=== PATIENT | male | born 1995 | race Caucasian/White ===

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

== ENCOUNTER 2017-06-03 16:35 | Emergency (ER) | payer MEDICAID ==
[~2017-06-03] VITALS: Ht 175.3 cm; Wt 68.2 kg
[~2017-06-03 16:35] MED LIST changes: +CEPH-460 PO; +NAPR500 PO
[2017-06-03 16:36] VITALS: BP 122/85; PULSE 97; RESP 16; TEMP 98.9; O2SAT 98
[2017-06-03 18:45] LABS: AUTOMATED NEUTROPHIL # 14.2 TH/MM3 (1.8-7.7); BASOPHIL % 0.1 % (0.0-2.0); EOSINOPHIL % 0.1 % (0.0-4.0); HEMATOCRIT 40.4 % (39.0-51.0); HEMOGLOBIN 14.2 GM/DL (13.0-17.0); LYMPH % 9.3 % (9.0-44.0); LYMPHOCYTE # 1.6 TH/MM3 (1.0-4.8); MEAN CELL VOLUME 86.6 FL (80.0-100.0); MEAN CORPUSCULAR HEMOGLOBIN 30.6 PG (27.0-34.0); MEAN CORPUSCULAR HGB CONC 35.3 % (32.0-36.0); MEAN PLATELET VOLUME 9.3 FL (7.0-11.0); MONO % 5.5 % (0.0-8.0); MONOCYTE # 0.9 TH/MM3 (0-0.9); PLATELET COUNT 180 TH/MM3 (150-450); RED BLOOD COUNT 4.66 MIL/MM3 (4.50-5.90); RED CELL DISTRIBUTION WIDTH 13.4 % (11.6-17.2); WHITE BLOOD COUNT 16.7 TH/MM3 (4.0-11.0)
--- NOTE | 2017-06-03 18:48 | PD ---
HPI Chief Complaint: Flank/Kidney Pain Time Seen by Provider: 18:47 Travel History International Travel<30 days: No Contact w/Intl Traveler<30days: No Traveled to known affect area: No PFSH Past Medical History ADHD: No Asthma: Yes Anxiety: Yes Depression: Yes (EPISODIC) Cancer: No Cardiovascular Problems: No Diabetes: No Diminished Hearing: No Psychiatric: No Immunizations Current: Yes Migraines: No Seizures: No Thyroid Disease: No Ulcer: No Influenza Vaccination: No Past Surgical History Surgical History: No Previous Surgery Appendectomy: No Cholecystectomy: No Social History Alcohol Use: Yes (OCCASIONAL) Tobacco Use: Yes (" A FEW CIGARETTES PER DAY") Substance Use: No Allergies-Medications (Allergen,Severity, Reaction): Coded Allergies: No Known Allergies (Verified Adverse Reaction, Unknown, 06/03/17) Reported Meds & Prescriptions Reported Meds & Active Scripts Active No Active Prescriptions or Reported Medications Data Data Last Documented VS Vital Signs Date Time Temp Pulse Resp B/P (MAP) Pulse Ox O2 Delivery O2 Flow Rate FiO2 06/03/17 16:36 98.9 97 16 122/85 (97) 98 Orders Orders Complete Blood Count With Diff (06/03/17 16:44) Comprehensive Metabolic Panel (06/03/17 16:44) Lipase (06/03/17 16:44) Group A Rapid Strep Screen (06/03/17 16:44) Influenzae A/B Antigen (06/03/17 16:44) Labs Laboratory Tests Test 06/03/17 18:16 White Blood Count 16.7 TH/MM3 Red Blood Count 4.66 MIL/MM3 Hemoglobin 14.2 GM/DL Hematocrit 40.4 % Mean Corpuscular Volume 86.6 FL Mean Corpuscular Hemoglobin 30.6 PG Mean Corpuscular Hemoglobin Concent 35.3 % Red Cell Distribution Width 13.4 % Platelet Count 180 TH/MM3 Mean Platelet Volume 9.3 FL Neutrophils (%) (Auto) 85.0 % Lymphocytes (%) (Auto) 9.3 % Monocytes (%) (Auto) 5.5 % Eosinophils (%) (Auto) 0.1 % Basophils (%) (Auto) 0.1 % Neutrophils # (Auto) 14.2 TH/MM3 Lymphocytes # (Auto) 1.6 TH/MM3 Monocytes # (Auto) 0.9 TH/MM3 Eosinophils # (Auto) 0.0 TH/MM3 Basophils # (Auto) 0.0 TH/MM3 CBC Comment DIFF FINAL Differential Comment Blood Urea Nitrogen 15 MG/DL Creatinine 0.90 MG/DL Random Glucose 83 MG/DL Total Protein 8.1 GM/DL Albumin 4.6 GM/DL Calcium Level 9.5 MG/DL Alkaline Phosphatase 76 U/L Aspartate Amino Transf (AST/SGOT) 19 U/L Alanine Aminotransferase (ALT/SGPT) 18 U/L Total Bilirubin 0.6 MG/DL Sodium Level 137 MEQ/L Potassium Level 3.4 MEQ/L Chloride Level 102 MEQ/L Carbon Dioxide Level 28.0 MEQ/L Anion Gap 7 MEQ/L Estimat Glomerular Filtration Rate 108 ML/MIN Lipase 157 U/L MDM Scripts No Active Prescriptions or Reported Meds Sammy Ames MD Jun 03, 2017 18:48
[2017-06-03 18:53] LABS: ALBUMIN 4.6 GM/DL (3.4-5.0); AST (GOT) 19 U/L (15-39); BLOOD UREA NITROGEN 15 MG/DL (7-18); CALCIUM 9.5 MG/DL (8.5-10.1); CHLORIDE 102 MEQ/L (98-107); GLOMERULAR FILTRATION RATE 108 ML/MIN (>89); GLUCOSE,RANDOM 83 MG/DL (74-106); SODIUM (NA) 137 MEQ/L (136-145)
[2017-06-03 18:55] LABS: ALT (GPT) 18 U/L (9-52)
[2017-06-03 18:57] LABS: ALKALINE PHOSPHATASE 76 U/L (45-117); TOTAL BILIRUBIN ADULT 0.6 MG/DL (0.2-1.0); TOTAL PROTEIN 8.1 GM/DL (6.4-8.2)
--- NOTE | 2017-06-03 20:44 | PD ---
Physical Exam Date Seen by Provider: Jun 03, 2017 Time Seen by Provider: 19:11 Narrative 22 year old male presents to the emergency department for evaluation of bilateral flank pain, worse on the left that started today. He also reports sore throat and coughing. Current pain is 7/10. Data Data Last Documented VS Vital Signs Date Time Temp Pulse Resp B/P (MAP) Pulse Ox O2 Delivery O2 Flow Rate FiO2 06/03/17 19:11 06/03/17 16:36 98.9 97 16 98 Orders Orders Complete Blood Count With Diff (06/03/17 16:44) Comprehensive Metabolic Panel (06/03/17 16:44) Lipase (06/03/17 16:44) Group A Rapid Strep Screen (06/03/17 16:44) Influenzae A/B Antigen (06/03/17 16:44) Strep Culture (Group A) (06/03/17 18:16) Labs Laboratory Tests Test 06/03/17 18:16 White Blood Count 16.7 TH/MM3 Red Blood Count 4.66 MIL/MM3 Hemoglobin 14.2 GM/DL Hematocrit 40.4 % Mean Corpuscular Volume 86.6 FL Mean Corpuscular Hemoglobin 30.6 PG Mean Corpuscular Hemoglobin Concent 35.3 % Red Cell Distribution Width 13.4 % Platelet Count 180 TH/MM3 Mean Platelet Volume 9.3 FL Neutrophils (%) (Auto) 85.0 % Lymphocytes (%) (Auto) 9.3 % Monocytes (%) (Auto) 5.5 % Eosinophils (%) (Auto) 0.1 % Basophils (%) (Auto) 0.1 % Neutrophils # (Auto) 14.2 TH/MM3 Lymphocytes # (Auto) 1.6 TH/MM3 Monocytes # (Auto) 0.9 TH/MM3 Eosinophils # (Auto) 0.0 TH/MM3 Basophils # (Auto) 0.0 TH/MM3 CBC Comment DIFF FINAL Differential Comment Blood Urea Nitrogen 15 MG/DL Creatinine 0.90 MG/DL Random Glucose 83 MG/DL Total Protein 8.1 GM/DL Albumin 4.6 GM/DL Calcium Level 9.5 MG/DL Alkaline Phosphatase 76 U/L Aspartate Amino Transf (AST/SGOT) 19 U/L Alanine Aminotransferase (ALT/SGPT) 18 U/L Total Bilirubin 0.6 MG/DL Sodium Level 137 MEQ/L Potassium Level 3.4 MEQ/L Chloride Level 102 MEQ/L Carbon Dioxide Level 28.0 MEQ/L Anion Gap 7 MEQ/L Estimat Glomerular Filtration Rate 108 ML/MIN Lipase 157 U/L MDM Supervised Visit with ANITA: No Narrative Course 22-year-old male presents to the emergency department for evaluation of flank pain, sore throat, coughing that started today. Patient is initially seen in triage. He left AGAINST MEDICAL ADVICE before he could be moved to medical bed. Diagnosis Primary Impression: Left against medical advice Patient Instructions: General Instructions Departure Forms: Tests/Procedures Scripts No Active Prescriptions or Reported Meds Disposition: 07 AGAINST MEDICAL ADVICE Slime Hays Jun 03, 2017 20:44
== END 2017-06-03 19:11 | disposition left against medical advice (07) ==
LOC: NEPD 16:35
DX: R10.9 Unspecified abdominal pain (principal); R05 Cough; F17.210 Nicotine dependence, cigarettes, uncomplicated
CPT/HCPCS: 80053; 83690; 85025; 87081; 87804; 87880; 99283